=== PATIENT | female | born 1950 | race Caucasian/White ===

== ENCOUNTER 2020-09-22 10:00 | Outpatient (RCR) | payer MEDICARE | END 2020-09-23 | LOC: PT 10:00 | PROVIDERS: ATTEND Specialist | DX: M17.12 Unilateral primary osteoarthritis, left knee (principal) ==

== ENCOUNTER 2020-10-05 10:32 | Outpatient (RCR) | payer MEDICARE | END 2020-10-24 | LOC: PT 10:32 | PROVIDERS: ATTEND Specialist | DX: M17.12 Unilateral primary osteoarthritis, left knee (principal) ==